=== PATIENT | male | born 1975 | race Caucasian/White ===

== ENCOUNTER 2016-11-25 12:28 | Emergency (ER) | payer SELFPAY ==
--- NOTE | 2016-11-25 13:09 | CT ---
EXAM DESCRIPTION: CT orbits without contrast CLINICAL HISTORY: Trauma. Seizure. Orbital trauma COMPARISON: None Available. TECHNIQUE: Thin section CT with coronal and sagittal reformatted images. This exam was performed according to our departmental dose-optimization program, which includes automated exposure control, adjustment of the mA and/or kV according to patient size and/or use of iterative reconstruction technique. FINDINGS: No orbital fracture identified. No paranasal sinus fluid. Normal appearance of the globes and optic nerves. No diagnostic abnormality of the extraocular muscles IMPRESSION: Negative CT orbits. No diagnostic acute abnormality. Electronically signed by: Jt Hameed MD 11/25/2016 1:08 PM CDT
--- NOTE | 2016-11-25 13:15 | CT ---
EXAM DESCRIPTION: CT cervical spine CLINICAL HISTORY: Seizure. Fall injury. Cervical spine pain. COMPARISON: None Available. TECHNIQUE: Thin section spiral CT with coronal and sagittal reformatted images. This exam was performed according to our departmental dose-optimization program, which includes automated exposure control, adjustment of the mA and/or kV according to patient size and/or use of iterative reconstruction technique. FINDINGS: Rotational positioning atlantoaxial. Mild degenerative change between the anterior arch of C1 and the dens No fracture of the cervical spine. Motion artifact at the C6 level. Mild disc degeneration C3-4 through C6-7. No traumatic disc herniation, canal stenosis, or diagnostic cord compression No severe foraminal stenosis No paravertebral diagnostic soft tissue abnormality. No mass lesion or adenopathy in the soft tissues of the neck There is mild emphysema in the lung apices. There is a 7 mm left upper lobe nodule and 8mm irregular right upper lobe nodule at a vessel bifurcation. These may be postinflammatory nodules, neoplastic nodule not excluded IMPRESSION: No cervical spine fracture A couple of irregular nodules in the lung apices, postinflammatory versus neoplastic. 2017 Fleischner Society Recommendations for Multiple Solid Lung Nodules Follow-Up base on size (average of long- and short-axis diameters). Use most suspicious nodule for followup. Nodule Size <6 mm Low-Risk Patient: No routine follow-up Nodule Size <6 mm High-Risk Patient: Optional CT at 12 months Nodule Size 6-8 mm Low-Risk Patient: CT at 3-[address] at 18-24 months Nodule Size 6-8 mm High-Risk Patient: CT at 3-6 months then at 18-24 months Electronically signed by: Jt Hameed MD 11/25/2016 1:14 PM CDT
--- NOTE | 2016-11-25 13:17 | CT ---
EXAM DESCRIPTION: CT head without contrast CLINICAL HISTORY: Seizure. Fall injury COMPARISON: None. TECHNIQUE: Noncontrast spiral CT of the brain. This exam was performed according to our departmental dose-optimization program, which includes automated exposure control, adjustment of the mA and/or kV according to patient size and/or use of iterative reconstruction technique FINDINGS: No intracranial hemorrhage, infarction or mass lesion. Normal nieto-white matter differentiation Cerebral volume loss with prominence of cortical sulci and ventricular system. No calvarial or skullbase fracture. No fluid in the paranasal sinuses or mastoid air cells IMPRESSION: No diagnostic acute traumatic injury of the brain CT is insensitive for early evaluation of acute stroke. If there is clinical concern for acute ischemia, an MRI may be considered. Electronically signed by: Jt Hameed MD 11/25/2016 1:16 PM CDT
--- NOTE | 2016-11-25 14:06 | ED.PDOC ---
History of Present Illness - General Chief Complaint: Trauma Stated Complaint: trauma secondary to seizure Time Seen by Provider: 11/25/16 12:29 Source: patient, RN notes reviewed, Vital Signs reviewed, family, EMS Exam Limitations: clinical condition - History of Present Illness Initial Comments: Per EMS patient was mowing the lawn and then had a seizure. They found him in the street having a seizure and he has continued to have seizures on the way here. He was given Valium 5mg IV by EMS. Still having seizures in ER. Ativan 2mg IV given. Only obvious injury R cheek - swollen with abrasion. Timing/Duration: unsure Severity: severe Improving Factors: medication Worsening Factors: nothing Associated Symptoms: headaches, seizure Allergies/Adverse Reactions: Allergies Amitriptyline Allergy (Verified 11/25/16 12:51) Review of Systems - Review of Systems Constitutional: States: diaphoresis Respiratory: States: no symptoms reported Cardiology: States: no symptoms reported Gastrointestinal/Abdominal: States: no symptoms reported Neurological: States: headache, seizure Unable to Obtain Due To: other - After Ativan patient was able to answer questions All other Systems: No Change from Baseline Past Medical History (General) - Patient Medical History Hx Seizures: Yes Surgical History: no surgical history - Vaccination History Hx Tetanus, Diphtheria Vaccination: - unknown Hx Influenza Vaccination: - unknown Hx Pneumococcal Vaccination: - unknown Immunizations Up to Date: - unknown - Social History Hx Tobacco Use: Yes Hx Alcohol Use: Yes - 1 pint today Hx Substance Use: No Hx Substance Use Treatment: - unknown Hx Depression: No Family Medical History - Family History Father Family History: Unknown Physical Exam - Physical Exam General Appearance: Unkempt, Well Developed, Well Hydrated, Well Nourished Eye Exam: bilateral normal Neck: non-tender, supple, normal inspection Respiratory: chest non-tender, lungs clear, normal breath sounds, no respiratory distress, no accessory muscle use Cardiovascular/Chest: normal peripheral pulses, regular rate, rhythm, no edema, no gallop, no JVD, no murmur Peripheral Pulses: radial,right: 2+, radial,left: 2+ Gastrointestinal/Abdominal: normal bowel sounds, non tender, soft, no organomegaly, no pulsatile mass Extremity: normal range of motion, non-tender, normal inspection Neurologic: disoriented x 3 - briefly after seizure, slurred speech Skin Exam: diaphoresis Comments: Vital Signs 11/25/16 11/25/16 12:35 12:39 Temperature 98.1 F Pulse Rate [ 110 H 107 H pulse ox] Respiratory 20 20 Rate Blood Pressure 124/71 145/99 [Right Arm] O2 Sat by Pulse 97 97 Oximetry Progress - Progress Progress: 11/25/16 14:45 Patient still sleeping. Labs show he is drinking too much and is not taking his Dilantin. - Results/Orders Results/Orders: Laboratory Tests 11/25/16 11/25/16 11/25/16 12:30 12:30 12:30 WBC 7.2 RBC 4.96 Hgb 15.6 Hct 46.3 MCV 93.3 MCH 31.5 H MCHC 33.7 RDW 15.6 H Plt Count 222 MPV 7.9 Absolute Neuts (auto) 3.30 Absolute Lymphs (auto) 2.00 Absolute Monos (auto) 1.00 H Absolute Eos (auto) 0.80 H Absolute Basos (auto) 0.00 Neutrophils % 46.6 Lymphocytes % 28.5 Monocytes % 13.7 H Eosinophils % 10.6 H Basophils % 0.6 Sodium 137 Potassium 3.6 Chloride 103 Carbon Dioxide 17 L Anion Gap 20.6 H BUN 14 Creatinine 0.77 BUN/Creatinine Ratio 18.2 Random Glucose 76 Serum Osmolality 273.0 L Calcium 8.8 Total Bilirubin < 0.2 L AST 27 ALT 16 Alkaline Phosphatase 112 Serum Total Protein 7.7 Albumin 3.8 Globulin 3.9 H Albumin/Globulin Ratio 1.0 L Ethyl Alcohol 222.80 H* Laboratory Last Values WBC 7.2 K/mm3 (4.8-10.8) 11/25/16 12:30 RBC 4.96 M/mm3 (4.70-6.10) 11/25/16 12:30 Hgb 15.6 gm/dL (14.0-18.0) 11/25/16 12:30 Hct 46.3 % (42.0-52.0) 11/25/16 12:30 MCV 93.3 fl (80.0-94.0) 11/25/16 12:30 MCH 31.5 pg (27.0-31.0) H 11/25/16 12:30 MCHC 33.7 g/dL (33.0-37.0) 11/25/16 12:30 RDW 15.6 % (11.5-14.5) H 11/25/16 12:30 Plt Count 222 K/mm3 (130-400) 11/25/16 12:30 MPV 7.9 fl (7.40-10.4) 11/25/16 12:30 Absolute Neuts (auto) 3.30 K/uL (1.8-6.8) 11/25/16 12:30 Absolute Lymphs (auto) 2.00 K/uL (1.0-3.4) 11/25/16 12:30 Absolute Monos (auto) 1.00 K/uL (0.2-0.8) H 11/25/16 12:30 Absolute Eos (auto) 0.80 K/uL (0.0-0.4) H 11/25/16 12:30 Absolute Basos (auto) 0.00 K/uL (0.0-0.1) 11/25/16 12:30 Neutrophils % 46.6 % (42.0-78.0) 11/25/16 12:30 Lymphocytes % 28.5 % (20.0-50.0) 11/25/16 12:30 Monocytes % 13.7 % (2.0-9.0) H 11/25/16 12:30 Eosinophils % 10.6 % (1.0-5.0) H 11/25/16 12:30 Basophils % 0.6 % (0.0-2.0) 11/25/16 12:30 Sodium 137 mmol/L (135-145) 11/25/16 12:30 Potassium 3.6 mmol/L (3.6-5.0) 11/25/16 12:30 Chloride 103 mmol/L (101-111) 11/25/16 12:30 Carbon Dioxide 17 mmol/L (21-31) L 11/25/16 12:30 Anion Gap 20.6 (12-18) H 11/25/16 12:30 BUN 14 mg/dL (7-18) 11/25/16 12:30 Creatinine 0.77 mg/dL (0.6-1.3) 11/25/16 12:30 BUN/Creatinine Ratio 18.2 (10-20) 11/25/16 12:30 Random Glucose 76 mg/dL (70-105) 11/25/16 12:30 Serum Osmolality 273.0 mOsm/L (275-295) L 11/25/16 12:30 Calcium 8.8 mg/dL (8.4-10.2) 11/25/16 12:30 Total Bilirubin < 0.2 mg/dL (0.2-1.0) L 11/25/16 12:30 AST 27 IU/L (10-42) 11/25/16 12:30 ALT 16 IU/L (10-60) 11/25/16 12:30 Alkaline Phosphatase 112 IU/L (42-121) 11/25/16 12:30 Serum Total Protein 7.7 gm/dL (6.4-8.2) 11/25/16 12:30 Albumin 3.8 g/dl (3.2-5.5) 11/25/16 12:30 Globulin 3.9 gm/dL (2.3-3.5) H 11/25/16 12:30 Albumin/Globulin Ratio 1.0 (1.1-1.9) L 11/25/16 12:30 Phenytoin < 2.5 ug/mL (10.0-20.0) L 11/25/16 12:30 Ethyl Alcohol 222.80 mg/dL (0-79) H* 11/25/16 12:30 - EKG/XRAY/CT CT Ordered: Yes - No acute findings - head/orbits/C-spine per Rad Departure - Departure Clinical Impression: Alcohol intoxication delirium with moderate or severe use disorder Closed head injury Qualifiers: Encounter type: initial encounter Qualified Code(s): S09.90XA - Unspecified injury of head, initial encounter Epilepsy Qualifiers: Epilepsy type: other generalized Intractability: not intractable Status epilepticus: without status epilepticus Qualified Code(s): G40.409 - Other generalized epilepsy and epileptic syndromes, not intractable, without status epilepticus Time of Disposition: 14:49 Disposition: Discharge to Home or Self Care Condition: Poor Departure Forms: ED Discharge - Pt. Copy, Patient Portal Self Enrollment Instructions: DI for Seizure Disorder -- Adult, DI for Closed Head Injury, DI for Alcohol Abuse and Alcoholism Diet: resume usual diet Activity: increase activity as tolerated Additional Instructions: Stop drinking alcohol Take your Dilantin as prescribed
[2016-11-25 15:55] VITALS: BP 124/80; TEMP 96.8; O2SAT 96
== END 2016-11-25 15:45 | disposition home or self-care (01) ==
LOC: ER 12:28
DX: S09.90XA Unspecified injury of head, initial encounter (principal); F10.121 Alcohol abuse with intoxication delirium; Y90.8 Blood alcohol level of 240 mg/100 ml or more; G40.802 Other epilepsy, not intractable, without status epilepticus; Z87.891 Personal history of nicotine dependence; Z88.8 Allergy status to other drugs, medicaments and biological substances

== ENCOUNTER 2016-12-09 15:38 | Emergency (ER) | payer MEDICAID ==
[2016-12-09 15:54] VITALS: TEMP 98.1
--- NOTE | 2016-12-09 16:03 | ED.PDOC ---
History of Present Illness - General Chief Complaint: Neuro Symptoms/Deficits Stated Complaint: seizure Time Seen by Provider: 12/09/16 16:02 Source: patient Exam Limitations: no limitations - History of Present Illness Initial Comments: Kartik Garcia 41 y/o male with history of seizure disorder stated that he had tonic-clonic seizure while he was at [employer] today and was in post ictal state when he was brought here.He has closed head injury playing football when he was 15 y/o and developed seizure a month later.Stated takes his Dilantin regularly. Timing/Duration: 1-3 hours Severity: moderate Improving Factors: nothing Worsening Factors: nothing Associated Symptoms: denies symptoms Allergies/Adverse Reactions: Allergies Amitriptyline Allergy (Verified 11/25/16 12:51) Review of Systems - Review of Systems Constitutional: States: no symptoms reported EENTM: States: no symptoms reported Respiratory: States: no symptoms reported Cardiology: States: no symptoms reported Gastrointestinal/Abdominal: States: no symptoms reported Genitourinary: States: no symptoms reported Musculoskeletal: States: no symptoms reported Skin: States: no symptoms reported Neurological: States: seizure - chronic Past Medical History (General) - Patient Medical History Hx Seizures: Yes Hx Dementia: No Hx Congestive Heart Failure: No Hx Thyroid Disease: No Hx Diabetes: No Hx Gastroesophageal Reflux: No Hx Renal Disease: No Surgical History: other - orif left ankle - Vaccination History Hx Tetanus, Diphtheria Vaccination: - unknown Hx Influenza Vaccination: - unknown Hx Pneumococcal Vaccination: - unknown - Social History Hx Tobacco Use: Yes Hx Alcohol Use: Yes - 1 pint today Hx Substance Use: No Hx Substance Use Treatment: - unknown Hx Depression: No Family Medical History - Family History Father Family History: Unknown Hx Cardiac Disease: Yes - parents Hx Family Cancer: Yes - cervix-mom Physical Exam - Physical Exam General Appearance: Alert, No apparent distress Eye Exam: bilateral normal Ears, Nose, Throat: hearing grossly normal, normal ENT inspection, normal pharynx Neck: non-tender, full range of motion, supple Respiratory: chest non-tender, lungs clear, normal breath sounds Cardiovascular/Chest: normal peripheral pulses, regular rate, rhythm, no murmur Peripheral Pulses: radial,right: 2+, radial,left: 2+ Gastrointestinal/Abdominal: normal bowel sounds, non tender, soft, no organomegaly Back Exam: no vertebral tenderness Extremity: normal inspection, no pedal edema 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, alert, normal mood/affect, oriented x 3 Skin Exam: normal color, warm/dry Lymphatic: no adenopathy Progress - Progress Progress: 12/09/16 18:51 Last Vital Signs Temp 98.1 F 12/09/16 15:38 Pulse 92 H 12/09/16 17:02 Resp 20 12/09/16 17:02 BP 147/96 12/09/16 17:02 Pulse Ox 96 12/09/16 17:02 - Results/Orders Results/Orders: Laboratory Tests 12/09/16 12/09/16 12/09/16 16:13 16:13 16:28 WBC 4.1 L RBC 4.62 L Hgb 14.6 Hct 42.7 MCV 92.5 MCH 31.6 H MCHC 34.2 RDW 15.5 H Plt Count 194 MPV 7.5 Absolute Neuts (auto) 3.00 Absolute Lymphs (auto) 0.60 L Absolute Monos (auto) 0.40 Absolute Eos (auto) 0.10 Absolute Basos (auto) 0.00 Neutrophils % 73.0 Lymphocytes % 14.1 L Monocytes % 9.1 H Eosinophils % 2.7 Basophils % 1.1 Sodium 132 L Potassium 3.3 L Chloride 98 L Carbon Dioxide 22 Anion Gap 15.3 BUN 17 Creatinine 0.83 BUN/Creatinine Ratio 20.5 H Random Glucose 115 H Serum Osmolality 267.0 L Calcium 9.0 Magnesium 1.4 L Total Bilirubin 0.2 AST 29 ALT 19 Alkaline Phosphatase 92 Serum Total Protein 7.5 Albumin 3.8 Globulin 3.7 H Albumin/Globulin Ratio 1.0 L Phenytoin < 2.5 L Ethyl Alcohol 12/09/16 16:28 WBC RBC Hgb Hct MCV MCH MCHC RDW Plt Count MPV Absolute Neuts (auto) Absolute Lymphs (auto) Absolute Monos (auto) Absolute Eos (auto) Absolute Basos (auto) Neutrophils % Lymphocytes % Monocytes % Eosinophils % Basophils % Sodium Potassium Chloride Carbon Dioxide Anion Gap BUN Creatinine BUN/Creatinine Ratio Random Glucose Serum Osmolality Calcium Magnesium Total Bilirubin AST ALT Alkaline Phosphatase Serum Total Protein Albumin Globulin Albumin/Globulin Ratio Phenytoin Ethyl Alcohol < 5.40 Patient signed out AMA doesnot like to finish iv Dilantin stating has pills at home.Explained the risk of frequent seizure episode but does not listen stood up and going home - EKG/XRAY/CT EKG: Sinus, no ST T wave changes Comments: heart rate-95 Departure - Departure Clinical Impression: Seizure disorder, Hypomagnesemia Time of Disposition: 18:55 Disposition: Left Against Medical Advice Condition: Fair Departure Forms: ED Discharge - Pt. Copy, Patient Portal Self Enrollment
[2016-12-09] MEDS ORDERED: THIAMINE HCL INJ 100 MG/ML VIAL ONE (16:44)
[2016-12-09] MEDS ORDERED: SODIUM CHLORIDE 0.9% 1000ML 1,000 ML ONE (16:44)
[2016-12-09] MEDS ORDERED: MULTIPLE VITAMIN 10 ML VIAL ONE (16:45)
[2016-12-09] MEDS: MULTIPLE VITAMIN INJ 10 ML, THIAMINE HCL INJ 100 MG in SODIUM CHLORIDE 0.9% 1000ML 1,00... IVS SCH (16:55)
[2016-12-09] MEDS: MAGNESIUM SULFATE PREMIX 2GM 2 GM in PREMIX BAG 1 BAG IVPB ONE (17:55)
[2016-12-09] MEDS ORDERED: MAGNESIUM SULFATE PREMIX 2GM 50 ML IVPB ONE (17:56)
[2016-12-09] MEDS ORDERED: SODIUM CHLORIDE 0.9% 100ML 100 ML IVPB ONE (18:34)
[2016-12-09] MEDS ORDERED: PHENYTOIN SODIUM INJ 250 MG/5 ML VIAL ONE (18:34)
[2016-12-09] MEDS: PHENYTOIN SODIUM INJ 1,000 MG in SODIUM CHLORIDE 0.9% 100ML 100 ML IVPB ONE (18:39)
[2016-12-09 19:32] VITALS: BP 161/48; O2SAT 98
== END 2016-12-09 18:59 | disposition left against medical advice (07) ==
LOC: ER 15:38
DX: G40.909 Epilepsy, unspecified, not intractable, without status epilepticus (principal); E83.42 Hypomagnesemia; Z88.8 Allergy status to other drugs, medicaments and biological substances; Z79.899 Other long term (current) drug therapy; Z87.891 Personal history of nicotine dependence
CPT/HCPCS: 36415; 80053; 80185; 80320; 83735; 85025; 93005; J3411; J3475; J7030; J7050

== ENCOUNTER 2017-01-25 15:02 | Emergency (ER) | payer OTHER ==
[2017-01-25] MEDS ORDERED: MIDAZOLAM INJ 5 MG/5 ML VIAL ONE ×2 (15:12→18:08)
[2017-01-25] MEDS ORDERED: MIDAZOLAM INJ 5 MG/5 ML VIAL IV ONE ×3 (15:14→18:47)
--- NOTE | 2017-01-25 15:24 | ED.PDOC ---
History of Present Illness - General Chief Complaint: Neuro Symptoms/Deficits Stated Complaint: seizure Time Seen by Provider: 01/25/17 15:18 Source: RN notes reviewed, Vital Signs reviewed, EMS - History of Present Illness Initial Comments: 41 YEAR OLD BROUGHT BY EMS FOR EVALUATION OF SEIZURES APPARENTLY STARTED AT 14 45 HOURS NOW IT IS 15 15 HE IS STILL SEIZING HE HAS HISTORY OF HIV SEIZURE DISORDER ON PHENYTOIN DEPRESSION ON CYMBALTA ANXIETY DISORDER ON VALIUM Timing/Duration: 1/2 hour Improving Factors: nothing Worsening Factors: nothing Allergies/Adverse Reactions: Allergies Amitriptyline Allergy (Verified 01/25/17 15:25) Home Medications: Ambulatory Orders DULoxetine HCL [Cymbalta] 30 mg PO DAILY 01/25/17 Emtricitabine-Tenofovir Alafen [Descovy 200-25 mg] 1 tab PO DAILY 01/25/17 Phenytoin Sodium Cap Extended [Dilantin Cap] 100 mg PO DAILY 01/25/17 Raltegravir Potassium [Isentress] 400 mg PO BID 01/25/17 diazePAM [Valium] 5 mg PO BID 01/25/17 Review of Systems - Review of Systems Review of Systems: 01/25/17 15:25 UNABLE TO OBTAIN DUE TO ACTIVE SEIZURES AT THE TIME OF EVALUATION Constitutional: States: see HPI EENTM: States: see HPI Respiratory: States: see HPI Cardiology: States: see HPI Genitourinary: States: see HPI Musculoskeletal: States: see HPI Skin: States: see HPI Neurological: States: see HPI, anxiety, depressed, seizure Endocrine: States: see HPI Past Medical History (General) - Patient Medical History Hx Seizures: Yes Hx Dementia: No Hx Congestive Heart Failure: No Hx Thyroid Disease: No Hx Diabetes: No Hx Gastroesophageal Reflux: No Hx Renal Disease: No - Vaccination History Hx Tetanus, Diphtheria Vaccination: - unknown Hx Influenza Vaccination: - unknown Hx Pneumococcal Vaccination: - unknown - Social History Hx Tobacco Use: Yes Hx Alcohol Use: Yes - 1 pint today Hx Substance Use: No Hx Substance Use Treatment: - unknown Hx Depression: No Family Medical History - Family History Father Family History: Unknown Hx Cardiac Disease: Yes - parents Hx Family Cancer: Yes - cervix-mom Physical Exam - Physical Exam General Appearance: Unkempt, Other - ACTIVELY SEIZING ON ARRIVAL Eye Exam: bilateral normal Ears, Nose, Throat: normal pharynx Neck: supple Respiratory: chest non-tender, lungs clear, normal breath sounds, no respiratory distress, no accessory muscle use Cardiovascular/Chest: regular rate, rhythm, no gallop, no JVD, no murmur Gastrointestinal/Abdominal: normal bowel sounds, non tender, soft, no organomegaly Back Exam: normal inspection Extremity: normal range of motion Neurologic: other - AFTER IV VERSED 5 MG SEIZURE WAS ABATED HE IS NOW CONFUSED PROB POST ICTAL Progress - Results/Orders Results/Orders: PT HAD SUB THERAPEUTIC DILANTIN LEVEL HE WAS GIVEN A BOLUS OG CEREBYX 1000 MG HE HAD 2 MORE EPISODES OF SEIZURES HE WAS GIVEN ATIVAN AND VERSED RESPECTIVELY TO CONTROL HE LATER WOKE UP ATE A SAND WITCH AND HAD GATORAID HE STATED HE HAD BEEN DRINKING TODAY AND NOT SURE IF HE TOOK HIS DILANTIN 9.15 pm He IS FEELING A LOT BETTER HE IS TOLERATING FOOD AND DRINKS AMBULATED ALERT ORIENTED X 3 READY FOR DISCHARGE Departure - Departure Clinical Impression: Alcohol abuse, Depressive disorder, Anxiety, Seizure disorder Disposition: Discharge to Home or Self Care Condition: Poor Departure Forms: ED Discharge - Pt. Copy, Patient Portal Self Enrollment Diet: regular diet Activity: walking as tolerated Home Medications: Ambulatory Orders DULoxetine HCL [Cymbalta] 30 mg PO DAILY 01/25/17 Emtricitabine-Tenofovir Alafen [Descovy 200-25 mg] 1 tab PO DAILY 01/25/17 Phenytoin Sodium Cap Extended [Dilantin Cap] 100 mg PO DAILY 01/25/17 Raltegravir Potassium [Isentress] 400 mg PO BID 01/25/17 diazePAM [Valium] 5 mg PO BID 01/25/17
[2017-01-25] MEDS ORDERED: FOSPHENYTOIN PE IVPB ONE ×2 (16:19)
[2017-01-25] MEDS ORDERED: SODIUM CHLORIDE IVPB ONE ×2 (16:19)
[2017-01-25] MEDS ORDERED: FOSPHENYTOIN 100 PE/2 ML VIAL IVPB ONE (16:47)
[2017-01-25] MEDS ORDERED: SODIUM CHLORIDE 0.9% 100ML 0 ML IVPB ONE (16:48)
[2017-01-25] MEDS ORDERED: SODIUM CHLORIDE 0.9% 100ML 100 ML IVPB ONE (17:04)
[2017-01-25] MEDS ORDERED: [UNRECOGNIZED DRUG - OTHER] ONE (17:05)
[2017-01-25 21:50] VITALS: BP 101/65; TEMP 98.9; O2SAT 99
== END 2017-01-25 22:20 | disposition home or self-care (01) ==
LOC: ER 15:02
DX: G40.909 Epilepsy, unspecified, not intractable, without status epilepticus (principal); F41.8 Other specified anxiety disorders; R79.89 Other specified abnormal findings of blood chemistry; F10.10 Alcohol abuse, uncomplicated; Z79.899 Other long term (current) drug therapy
CPT/HCPCS: 36415; 80053; 80185; 80307; 81001; 85025; 85730; J2060; J2250; J7050

== ENCOUNTER 2017-02-15 17:09 | Emergency (ER) | payer OTHER ==
[2017-02-15] MEDS ORDERED: SODIUM CHLORIDE IVPB ONE (17:13)
[2017-02-15] MEDS ORDERED: FOSPHENYTOIN PE IVPB ONE (17:13)
[2017-02-15] MEDS ORDERED: MIDAZOLAM INJ 5 MG/5 ML VIAL IV ONE ×2 (17:14→17:19)
[2017-02-15] MEDS ORDERED: FOSPHENYTOIN 100 PE/2 ML VIAL IVPB ONE (17:24)
[2017-02-15] MEDS ORDERED: SODIUM CHLORIDE 0.9% 100ML 100 ML IVPB ONE (17:25)
--- NOTE | 2017-02-15 18:50 | CT ---
PROCEDURE: Chest w/Contrast CLINICAL HISTORY: 41 years Male alleged hanging COMPARISON: None. TECHNIQUE: Contiguous axial images were obtained through the chest during the infusion of IV contrast. Reformatted images obtained. MIP reformatted images obtained. This exam was performed according to our department optimization program which includes automated exposure control, adjustment of the mA and/or kv according to patient size and/or use of iterative reconstruction technique. FINDINGS: The thoracic aorta is within normal limits of caliber without dissection or rupture. Motion artifact limits evaluation. No significant thoracic adenopathy. No evidence of pericardial effusion. Dependent atelectasis in the lungs bilaterally. The visualized segments of the hyoid bone appear unremarkable. No evidence of pneumothorax. Small areas of alveolar infiltrate in the left lung base. IMPRESSION: Dependent atelectasis Question small amount of patchy alveolar density in the left lung base which could reflect areas of developing infiltrate or aspiration. Electronically signed by: Xochitl Roe 02/15/2017 6:49 PM [employer]
--- NOTE | 2017-02-15 18:52 | CT ---
PROCEDURE: Head CLINICAL HISTORY: 41 years Male alleged hanging COMPARISON: None. TECHNIQUE: Contiguous axial CT images obtained through the brain without IV contrast. This exam was performed according to our department optimization program which includes automated exposure control, adjustment of the mA and/or kv according to patient size and/or use of iterative reconstruction technique. FINDINGS: The ventricles and sulci are prominent consistent with atrophic changes out of proportion to the patient's age. No mass lesions. No acute hemorrhage. Atherosclerotic calcifications. No fluid or significant mucosal thickening in the visualized paranasal sinuses. No depressed calvarial fractures. IMPRESSION: No acute intracranial abnormality is identified. Electronically signed by: Xochitl Roe 02/15/2017 6:51 PM [employer] ATTENDANT
--- NOTE | 2017-02-15 18:54 | CT ---
PROCEDURE: Cervical Spine CLINICAL HISTORY: 41 years Male alleged hanging COMPARISON: None. TECHNIQUE: Contiguous axial images obtained through the cervical spine without IV contrast. Coronal and sagittal reformatted images obtained. This exam was performed according to our department optimization program which includes automated exposure control, adjustment of the mA and/or kv according to patient size and/or use of iterative reconstruction technique. FINDINGS: Mild motion artifact on the images. Vertebral body alignment is unremarkable. No acute fractures. IMPRESSION: Mild motion artifact on the images. No acute cervical spinal fracture is identified. Electronically signed by: Steve Roe MD 02/15/2017 6:52 PM [facility]
[2017-02-15] MEDS ORDERED: SODIUM CHLORIDE 0.9% 1000ML 1,000 ML IVS ONE ×2 (19:20→20:23)
--- NOTE | 2017-02-15 19:23 | ED.PDOC ---
History of Present Illness - General Chief Complaint: Behavioral / Psych Stated Complaint: seizures Time Seen by Provider: 02/15/17 17:10 Source: RN notes reviewed, Vital Signs reviewed, EMS Exam Limitations: clinical condition - History of Present Illness Allergies/Adverse Reactions: Allergies Amitriptyline Allergy (Verified 01/25/17 15:25) Home Medications: Ambulatory Orders DULoxetine HCL [Cymbalta] 30 mg PO DAILY 01/25/17 Emtricitabine-Tenofovir Alafen [Descovy 200-25 mg] 1 tab PO DAILY 01/25/17 Phenytoin Sodium Cap Extended [Dilantin Cap] 100 mg PO DAILY 01/25/17 Raltegravir Potassium [Isentress] 400 mg PO BID 01/25/17 diazePAM [Valium] 5 mg PO BID 01/25/17 Review of Systems - Review of Systems Unable to Obtain Due To: clinical condition Past Medical History (General) - Patient Medical History Hx Seizures: Yes Hx Dementia: No Hx Congestive Heart Failure: No Hx Thyroid Disease: No Hx Diabetes: No Hx Gastroesophageal Reflux: No Hx Renal Disease: No - Vaccination History Hx Tetanus, Diphtheria Vaccination: - unknown Hx Influenza Vaccination: - unknown Hx Pneumococcal Vaccination: - unknown - Social History Hx Tobacco Use: Yes Hx Alcohol Use: Yes - 1 pint today Hx Substance Use: No Hx Substance Use Treatment: - unknown Hx Depression: No Family Medical History - Family History Father Family History: Unknown Hx Cardiac Disease: Yes - parents Hx Family Cancer: Yes - cervix-mom Physical Exam - Physical Exam General Appearance: Unkempt - and in status epilepticus upon arrival via EMS Neck: normal inspection Respiratory: no respiratory distress - . Snoring in sleep., no accessory muscle use Cardiovascular/Chest: tachycardia Gastrointestinal/Abdominal: non tender, soft Extremities Exam: non-tender, normal range of motion Neurological: flat - when he awoke after IV sedation for status. He did report that he would like to go home. When he was told that he needed to keep resting he went back to sleep. I then decided to call [facility] for an evaluation. Appearance: disheveled - with poor insight. Behavior/Eye Contact/Speech: avoids eye contact Thoughts/Hallucinations: other - poor insight Skin Exam: normal color Progress - Progress Progress: 02/15/17 19:23 Pt came in seizing. He required Ativan 2 mg IV x 2, followed by Versed 4 mg IV x 1, and Fosphenytoin loading. Pt's seizures stopped after this. He was stable for CT head, c-spine, and chest. 02/15/17 19:24 Labs reviewed. 02/15/17 21:15 I spoke with patient's father over the phone who said that Patient had told him earlier today that he was going to kill himself but FOParag didn't think patient would actually do anything. [facility] found patient seizing with a belt around his neck and 911 was called. When I asked FOParag to come to ER to be with Pt he said he had no way of getting here. He states Pt has been living with him since summer and he acknowledges that his son has behavioral health problems and needs help. He said that Pt thinks everyone is out to get him and no one is on his side. Patient woke up from slumber in order to urinate. I asked him if he remembered what happened earlier today and he said yes. He said he has felt "overworked" lately. I feel that patient is a danger to himself and I do not think this patient has good insight. I think he needs to be involuntarily committed to an Inpatient Behavioral Health facility given his suicide attempt today, history of EtOH abuse, and history of HIV positivity all of which poses an increased threat to himself and society in my opinion. [facility] called for evaluation. I spoke with counsellor Sirisha who said she accepted to take the call. She is coming in from [place]. She did say that if the roads are too dangerous to drive on, she would ask us to hold onto patient in ER overnight and a new counselor who lives in [place] would be sole conditioner and should be available at change of shift (0800) tomorrow. 02/16/17 00:19 I spoke with patient's father who states that last night the patient threatened to kill him twice. Also, [facility] states he does not feel safe with patient at his home. I am trying to secure inpatient placement for patient. EtOH down trending. Patient is agreeable to a voluntary admission and I have a member of the local home theater expert's department who has agreed to escort patient to an accepting Inpatient facility. 02/16/17 01:33 Velma Bowman - accepted transfer at 0115. Pt discharged and to be transported by [facility] as a greatly appreciated courtesy. - Results/Orders Results/Orders: CT Head Report: PROCEDURE: Head CLINICAL HISTORY: 41 years Male alleged hanging COMPARISON: None. TECHNIQUE: Contiguous axial CT images obtained through the brain without IV contrast. This exam was performed according to our department optimization program which includes automated exposure control, adjustment of the mA and/or kv according to patient size and/or use of iterative reconstruction technique. FINDINGS: The ventricles and sulci are prominent consistent with atrophic changes out of proportion to the patient's age. No mass lesions. No acute hemorrhage. Atherosclerotic calcifications. No fluid or significant mucosal thickening in the visualized paranasal sinuses. No depressed calvarial fractures. IMPRESSION: No acute intracranial abnormality is identified. CT C-Spine Report: PROCEDURE: Cervical Spine CLINICAL HISTORY: 41 years Male alleged hanging COMPARISON: None. TECHNIQUE: Contiguous axial images obtained through the cervical spine without IV contrast. Coronal and sagittal reformatted images obtained. This exam was performed according to our department optimization program which includes automated exposure control, adjustment of the mA and/or kv according to patient size and/or use of iterative reconstruction technique. FINDINGS: Mild motion artifact on the images. Vertebral body alignment is unremarkable. No acute fractures. IMPRESSION: Mild motion artifact on the images. No acute cervical spinal fracture is identified. CT Chest Report: ROCEDURE: Chest w/Contrast CLINICAL HISTORY: 41 years Male alleged hanging COMPARISON: None. TECHNIQUE: Contiguous axial images were obtained through the chest during the infusion of IV contrast. Reformatted images obtained. MIP reformatted images obtained. This exam was performed according to our department optimization program which includes automated exposure control, adjustment of the mA and/or kv according to patient size and/ or use of iterative reconstruction technique. FINDINGS: The thoracic aorta is within normal limits of caliber without dissection or rupture. Motion artifact limits evaluation. No significant thoracic adenopathy. No evidence of pericardial effusion. Dependent atelectasis in the lungs bilaterally. The visualized segments of the hyoid bone appear unremarkable. No evidence of pneumothorax. Small areas of alveolar infiltrate in the left lung base. IMPRESSION: Dependent atelectasis Question small amount of patchy alveolar density in the left lung base which could reflect areas of developing infiltrate or aspiration. 02/15/17 17:41 Hold Metformin x 48Hrs [id number] Laboratory Results - last 24 hr 02/15/17 02/15/17 02/15/17 17:24 17:24 17:24 WBC 5.0 RBC 4.86 Hgb 15.4 Hct 45.6 MCV 93.8 MCH 31.8 H MCHC 33.9 RDW 14.3 Plt Count 149 MPV 8.2 Absolute Neuts (auto) 2.70 Absolute Lymphs (auto) 1.40 Absolute Monos (auto) 0.50 Absolute Eos (auto) 0.20 Absolute Basos (auto) 0.00 Neutrophils % 55.0 Lymphocytes % 28.6 Monocytes % 10.9 H Eosinophils % 4.7 Basophils % 0.8 Sodium 140 Potassium 3.6 Chloride 105 Carbon Dioxide 16 L Anion Gap 22.6 H BUN 9 Creatinine 0.79 BUN/Creatinine Ratio 11.4 Random Glucose 84 Serum Osmolality 277.3 Calcium 8.5 Total Bilirubin 0.2 AST 41 ALT 19 Alkaline Phosphatase 93 Serum Total Protein 8.2 Albumin 3.7 Globulin 4.5 H Albumin/Globulin Ratio 0.8 L Phenytoin < 0.5 L Ethyl Alcohol 02/15/17 02/15/17 02/16/17 17:24 22:13 00:09 WBC RBC Hgb Hct MCV MCH MCHC RDW Plt Count MPV Absolute Neuts (auto) Absolute Lymphs (auto) Absolute Monos (auto) Absolute Eos (auto) Absolute Basos (auto) Neutrophils % Lymphocytes % Monocytes % Eosinophils % Basophils % Sodium Potassium Chloride Carbon Dioxide Anion Gap BUN Creatinine BUN/Creatinine Ratio Random Glucose Serum Osmolality Calcium Total Bilirubin AST ALT Alkaline Phosphatase Serum Total Protein Albumin Globulin Albumin/Globulin Ratio Phenytoin Ethyl Alcohol 266.90 H* 125.70 H* 74.30 02/15/17 02/15/17 02/15/17 17:42 19:10 20:10 Temperature 98.4 F Pulse Rate [ 110 H 88 80 Left Brachial] Respiratory 24 21 19 Rate Blood Pressure 127/64 110/62 104/69 [Left Arm] O2 Sat by Pulse 97 100 100 Oximetry 02/15/17 02/16/17 21:10 00:32 Temperature 97.9 F Pulse Rate [ 97 H 91 H Left Brachial] Respiratory 20 18 Rate Blood Pressure 125/86 111/71 [Left Arm] O2 Sat by Pulse 100 97 Oximetry Departure - Departure Clinical Impression: Noncompliance with medication regimen, Alcohol abuse, Seizure disorder Time of Disposition: 01:32 Disposition: Transfer to Hospital Departure Forms: ED Discharge - Pt. Copy, Patient Portal Self Enrollment Home Medications: Ambulatory Orders DULoxetine HCL [Cymbalta] 30 mg PO DAILY 01/25/17 Emtricitabine-Tenofovir Alafen [Descovy 200-25 mg] 1 tab PO DAILY 01/25/17 Phenytoin Sodium Cap Extended [Dilantin Cap] 100 mg PO DAILY 01/25/17 Raltegravir Potassium [Isentress] 400 mg PO BID 01/25/17 diazePAM [Valium] 5 mg PO BID 01/25/17 Additional Instructions: Go directly to [facility] in [place]. Stay safe. Take previously prescribed medicines. Transfer to Outside Facility - Transfer Information Accepting Provider:: Dr. Bowman at 0115 Accepting Facility: [facility] Reason for Transfer: specialized care not available - Inpatient BH
[2017-02-16 00:33] VITALS: BP 111/71; TEMP 97.9; O2SAT 97
== END 2017-02-16 01:40 | disposition short-term general hospital (02) ==
LOC: ER 17:09
DX: G40.909 Epilepsy, unspecified, not intractable, without status epilepticus (principal); F10.129 Alcohol abuse with intoxication, unspecified; Y90.8 Blood alcohol level of 240 mg/100 ml or more; Z91.5 Personal history of self-harm
CPT/HCPCS: 36415; 70450; 71260; 72125; 80053; 80185; 80320; 85025; J2060; J2250; J7030; J7050